=== PATIENT | female | born 1960 | race African-American/Black ===

== ENCOUNTER 2022-08-10 05:49 | Day surgery (SDC) | payer OTHER ==
[~2022-08-10] VITALS: Ht 157.5 cm; Wt 87.7 kg
[~2022-08-10 05:49] MED LIST: SODIUM CHLORIDE 0.9% 1,000 ML IV ONE
[2022-08-10] MEDS ORDERED: BENZOCAINE 20% 50 MCG/SPRAY 57 GM TP ONE (05:50)
[2022-08-10] MEDS ORDERED: LIDOCAINE 2% 11 ML JELLY TP ONE (05:50)
[2022-08-10] MEDS ORDERED: LIDOCAINE 4% 50 ML SOLUTION TP ONE (05:50)
[2022-08-10] MEDS ORDERED: SODIUM CHLORIDE 0.9% 1,000 ML ONE (06:18)
[2022-08-10 06:30] LABS: COVID AG,FIA SOURCE NASAL SWAB
[2022-08-10] MEDS ORDERED: ASPI-1444 PO (06:34)
[2022-08-10] MEDS ORDERED: FURO20TA4 PO (06:34)
[2022-08-10] MEDS ORDERED: VALS160T31 PO (06:34)
[2022-08-10] MEDS ORDERED: AMLO5TAB66 PO (06:34)
[2022-08-10] MEDS ORDERED: FAMO40TA7 PO (06:34)
[2022-08-10] MEDS ORDERED: FLUT16SP NASAL (06:34)
[2022-08-10] MEDS ORDERED: MIDAZOLAM HCL 2 MG/2 ML VIAL ONE (08:02)
[2022-08-10] MEDS ORDERED: FentaNYL CITRATE PF 100 MCG/2 ML VIAL ONE (08:02)
[2022-08-10] MEDS ORDERED: MethylPREDNISolone SOD SUCC 125 MG/2 ML VIAL IVP ONE ×2 (09:30→09:45)
[2022-08-10] MEDS ORDERED: MethylPREDNISolone SOD SUCC 125 MG/2 ML VIAL ONE (09:32)
[2022-08-10] MEDS ORDERED: OXYGEN THERAPY IH SCH (20:00)
== END 2022-08-10 10:50 | disposition home or self-care (01) ==
LOC: SURGERY 05:49
PROVIDERS: ATTEND Internal Medicine Critical Care Medicine
DX: J38.4 Edema of larynx (principal); B37.0 Candidal stomatitis; Z20.822 Contact with and (suspected) exposure to COVID-19; Z90.710 Acquired absence of both cervix and uterus; Z79.899 Other long term (current) drug therapy
CPT/HCPCS: 31623; 87206; 87101; 87220; 87070; 88108; 88305; 87186; 31624; 71045; 87015; 87426; 99152; J3010; J2250; J2930; Q9967; J7030; C9803; Z7610